=== PATIENT | female | born 1955 | race Caucasian/White ===

== ENCOUNTER → 2019-01-18 | Outpatient (CLI) | payer MEDICAID ==
[~2019-01-18] MED LIST: CARI250T; HYDR-1421; LISI10TA6
== END | disposition home or self-care (01) ==
LOC: Rad HDHVI 11:03
PROVIDERS: ATTEND Internal Medicine Cardiovascular Disease
DX: I08.8 Other rheumatic multiple valve diseases (principal); I49.9 Cardiac arrhythmia, unspecified
CPT/HCPCS: 93306